=== PATIENT | male | born 1965 | race Caucasian/White ===

== ENCOUNTER 2019-09-04 08:57 | Emergency (ER) | payer OTHER ==
[2019-09-04] MEDS ORDERED: 0.9 % SODIUM CHLORIDE 1,000 ML IV ONE (09:00)
[2019-09-04] MEDS ORDERED: ASPIRIN 81 MG CHEW TAB PO ONE (09:00)
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
[2019-09-04 09:28] LABS: eGFR (Non-African) > 60
[2019-09-04 09:33] LABS: NEUTROPHILS # 3.5 # k/uL (1.4-7.7); SEGMENTED NEUTROPHILS % 58 % (39-79)
--- NOTE | 2019-09-04 09:34 | Diagnostic Imaging Report ---
PATIENT MR#: [id number] PATIENT PATIENT NAME: SETH MENENDEZ DATE OF : 1965 REFERRING PHYSICIAN: Belinda Del Rio EXAM DATE: 09/04/2019 ACCESSION NUMBER: [id number] EXAM DESCRIPTION: CHEST 2VIEW PA AND LATERAL CHEST HISTORY: Chest tightness COMPARISON: None PA and Lateral Chest dated September 04, 2019 demonstrates a normal cardiomediastinal silhouette. Pu lmonary vascularity is normal. Lungs are clear. IMPRESSION: NO ACTIVE DISEASE. Read by: Dr. Shannon Wayne Transcribed by: Transcribed Date: Electronically signed by: Dr. Shannon Wayne Date signed: 09/04/2019 9:33:26 AM
[2019-09-04] MEDS ORDERED: KETOROLAC TROMETHAMINE 60 MG/2 ML VIAL IM ONE (09:46)
[2019-09-04] MEDS ORDERED: KETOROLAC TROMETHAMINE 30 MG/1ML VIAL IV ONE (09:49)
[2019-09-04 11:01] VITALS: BP 115/71
== END 2019-09-04 10:25 | disposition home or self-care (01) ==
LOC: ED 08:57
DX: R07.9 Chest pain, unspecified (principal)
CPT/HCPCS: 71046; 80053; 84484; 85025; 85379; 93005; 96361; 96374; 99282; 99284; J1885; J7030; S1016